=== PATIENT | male | born 1980 | race Two or more races ===

== ENCOUNTER 2023-07-04 12:07 | Emergency (ER) | payer MEDICAID, OTHER ==
[~2023-07-04] VITALS: Ht 165.1 cm; Wt 82.2 kg
[2023-07-04] MEDS ORDERED: KETOROLAC TROMETH 60MG/2ML VIAL IM ONE (14:30)
[2023-07-04 15:03] VITALS: BP 132/64; PULSE 87; RESP 18; TEMP 98.5; O2SAT 97
[2023-07-04] MEDS ORDERED: ACE3T PO (15:39)
[2023-07-04] MEDS ORDERED: IBUP-1455 PO (15:39)
== END 2023-07-04 16:00 | disposition home or self-care (01) ==
LOC: ER 12:07
DX: G56.32 Lesion of radial nerve, left upper limb (principal)
CPT/HCPCS: 72040; 73030; 96372; 99284; J1885